=== PATIENT | male | born 1995 | race African-American/Black ===

== ENCOUNTER 2020-06-18 10:56 | Emergency (ER) | payer BC ==
[2020-06-18 20:25] LABS: SARS-CoV-2 MS2 Positive; SARS-CoV-2 N Gene Negative; SARS-CoV-2 S Gene Negative; SARS-CoV-2 by NAA Not Detected (NotDetected); SARS-CoV-2 orf1ab Negative
== END 2020-06-18 11:30 | disposition home or self-care (01) ==
LOC: ERS 10:56
DX: Z20.828 Contact with and (suspected) exposure to other viral communicable diseases (principal); F17.210 Nicotine dependence, cigarettes, uncomplicated
CPT/HCPCS: 87635; 99283; U0003

== ENCOUNTER 2021-05-25 10:14 | Emergency (ER) | payer BC, SELFPAY ==
[2021-05-25] MEDS ORDERED: Ketorolac Tromethamine 30 MG/ML VIAL ONE (10:34)
[2021-05-25] MEDS ORDERED: Acetaminophen 500 MG TAB ONE (10:34)
== END 2021-05-25 10:50 | disposition home or self-care (01) ==
LOC: ERS 10:14
DX: S39.012A Strain of muscle, fascia and tendon of lower back, initial encounter (principal); X50.9XXA Other and unspecified overexertion or strenuous movements or postures, initial encounter
CPT/HCPCS: 96372; 99283; J1885

== ENCOUNTER 2023-06-23 17:06 | Emergency (ER) | payer SELFPAY | END 2023-06-23 17:40 | disposition home or self-care (01) | LOC: ERS 17:06 | DX: R10.9 Unspecified abdominal pain (principal); R11.0 Nausea; F17.210 Nicotine dependence, cigarettes, uncomplicated | CPT/HCPCS: 99283 ==

== ENCOUNTER 2023-07-23 10:19 | Emergency (ER) | payer SELFPAY | END 2023-07-23 10:40 | disposition home or self-care (01) | LOC: ERS 10:19 | DX: S02.5XXA Fracture of tooth (traumatic), initial encounter for closed fracture (principal); K02.9 Dental caries, unspecified; F17.210 Nicotine dependence, cigarettes, uncomplicated; W22.8XXA Striking against or struck by other objects, initial encounter | CPT/HCPCS: 99282 ==